=== PATIENT | female | born 1930 | race Caucasian/White ===

== ENCOUNTER 2017-05-17 10:30 | Emergency (ER) | payer MEDICARE ==
[~2017-05-17] VITALS: Ht 152.4 cm; Wt 64.0 kg
[~2017-05-17 10:30] MED LIST: ASPI81 PO; ATOR20TA42 PO; LEVO50TA51 PO
[2017-05-17 10:39] VITALS: BP 148/67; PULSE 89; RESP 16; TEMP 98.7; O2SAT 96
[2017-05-17] MEDS ORDERED: LIPI20TA PO (11:07)
[2017-05-17] MEDS ORDERED: LEVO75TA3 PO (11:07)
[2017-05-17] MEDS ORDERED: PLAV75TA29 PO (11:07)
[2017-05-17] MEDS ORDERED: MULTTAB67 PO (11:07)
--- NOTE | 2017-05-17 11:17 | PD ---
HPI Chief Complaint: Musculoskeletal Complaint Time Seen by Provider: 10:45 Travel History International Travel<30 days: No Contact w/Intl Traveler<30days: No Traveled to known affect area: No History of Present Illness HPI The patient was seen and examined in the presence of the nurse. She complains of left leg pain. Duration 3 weeks. Severity is moderate. There is no injury. It's a discrete distinct area on the medial side of the proximal right tibia. She is ambulatory. She says that sometimes the pain radiates from that spot up into her back. Denies neurologic complaint or fever. PFSH Past Medical History Hx Anticoagulant Therapy: Yes (BABY ASPRIN DAILY) Arthritis: Yes Asthma: No Blood Disorders: No Heart Rhythm Problems: No Cancer: Yes (LEFT BREAST) Cardiovascular Problems: Yes High Cholesterol: Yes Chemotherapy: No Chest Pain: No Congestive Heart Failure: No COPD: No Cerebrovascular Accident: No Diabetes: No Diminished Hearing: No Endocrine: Yes Gastrointestinal Disorders: Yes Glaucoma: No Genitourinary: No Headaches: No Hepatitis: No Hiatal Hernia: No Hypertension: No Immune Disorder: No Implanted Vascular Access Dvce: No Musculoskeletal: Yes Neurologic: No Psychiatric: No Reproductive: No Respiratory: Yes (SMOKER ) Migraines: No Myocardial Infarction: No Radiation Therapy: No Thyroid Disease: Yes Tetanus Vaccination: < 5 Years Influenza Vaccination: Yes ?: Not Menopausal: Yes Past Surgical History Abdominal Surgery: Yes (APPY) Appendectomy: Yes Section: Yes (X3) Eye Surgery: Yes Gynecologic Surgery: Yes () Mastectomy: Yes (LEFT 1996) Thoracic Surgery: Yes (LEFT MASTECTOMY) Tonsillectomy: Yes Other Surgery: Yes (LEFT MASECTOMY) Social History Alcohol Use: Yes (OCC) Tobacco Use: Yes (1/2 ppd) Substance Use: No Allergies-Medications (Allergen,Severity, Reaction): Coded Allergies: No Known Allergies (Verified , 05/17/17) Reported Meds & Prescriptions Reported Meds & Active Scripts Active Review of Systems General / Constitutional: No: Fever Eyes: No: Visual changes HENT: No: Headaches Cardiovascular: No: Chest Pain or Discomfort Respiratory: No: Shortness of Breath Gastrointestinal: No: Abdominal Pain Genitourinary: No: Dysuria Musculoskeletal: Positive: Pain Skin: No Rash Neurologic: No: Weakness Psychiatric: No: Depression Endocrine: No: Polydipsia Hematologic/Lymphatic: No: Easy Bruising Physical Exam Narrative GENERAL: Well-nourished, well-developed patient in no apparent distress. SKIN: Focused skin assessment reveals no rash and nodules. Skin is Warm and dry. HEAD: Atraumatic. Normocephalic. EYES: Pupils equal and round. No scleral icterus. No injection or drainage. ENT: No nasal bleeding or discharge. Mucous membranes pink and moist. NECK: Trachea midline. No JVD. CARDIOVASCULAR: Regular rate and rhythm. No murmur appreciated. RESPIRATORY: No accessory muscle use. Clear to auscultation. Breath sounds equal bilaterally. GASTROINTESTINAL: Abdomen soft, non-tender, nondistended. Hepatic and splenic margins not palpable. MUSCULOSKELETAL: No obvious deformities. No clubbing. No cyanosis. No edema. There is a very small distinct tender spot medial aspect of the proximal left lower leg. There is no erythema or warmth of the leg. No edema. No ascending lymphangitis. No findings of infection. NEUROLOGICAL: Awake and alert. No obvious cranial nerve deficits. Motor grossly within normal limits. Normal speech. PSYCHIATRIC: Appropriate mood and affect; insight and judgment normal. Data Data Last Documented VS Vital Signs Date Time Temp Pulse Resp B/P (MAP) Pulse Ox O2 Delivery O2 Flow Rate FiO2 05/17/17 10:39 98.7 89 16 148/67 (94) 96 Orders Orders Tibia/Fibula (Ap/Lat) (05/17/17 ) [facility] Medical Decision Making Medical Screen Exam Complete: Yes Emergency Medical Condition: Yes Medical Record Reviewed: Yes Differential Diagnosis Contusion, occult fracture, superficial thrombophlebitis Narrative Course I have reviewed the patient's electronic medical record. I reviewed her left tibia x-rays which are normal There is no clinical suspicion of objective findings to suggest a diagnosis of DVT. She looks to have a very small bruise there. Recommend primary care follow-up Diagnosis Primary Impression: Pain in left lower leg Additional Instructions: The patient was advised to follow up with their physician and return if they worsen. The patient was warned about potential sedation for the medications they will receive on prescription. Med/Other Pt SpecificInfo: Prescription(s) given Scripts Tramadol (Tramadol) 50 Mg Tab 50 MG PO Q6H Y for PAIN, #20 TAB 0 Refills Prov: Kwabena Mansfield MD 05/17/17 Disposition: 01 DISCHARGE HOME Condition: Stable Kwabena Mansfield MD May 17, 2017 11:17
--- NOTE | 2017-05-17 11:29 | RADRPT ---
EXAM DATE/TIME: 05/17/2017 11:18 [facility] COMPARISON: No previous studies available for comparison. INDICATIONS : No known injury. Pain started three weeks ago. Pain on proximal lateral side. MEDICAL HISTORY : Hypothyroidism. Carcinoma, breast. Chronic obstructive pulmonary disease. SURGICAL HISTORY : Mastectomy, left. Rotator cuff, right. Appendectomy. . Tonsils ENCOUNTER: Initial ACUITY: 3 weeks PAIN SCORE: 10/10 LOCATION: Left Tib/Fib FINDINGS: No definite fractures, or dislocations are identified. No definite lytic or sclerotic lesion is seen . There is no evidence for a radiopaque foreign body for technique. CONCLUSION: Unremarkable study. Robert Otero MD on May 17, 2017 at 11:27 Board Certified Radiologist. This report was verified electronically.
[2017-05-17] MEDS ORDERED: TRAM50TA PO (11:57)
== END 2017-05-17 12:09 | disposition home or self-care (01) ==
LOC: PHED 10:30
DX: M79.662 Pain in left lower leg (principal); E03.9 Hypothyroidism, unspecified; J44.9 Chronic obstructive pulmonary disease, unspecified; Z85.3 Personal history of malignant neoplasm of breast; Z90.12 Acquired absence of left breast and nipple; Z79.01 Long term (current) use of anticoagulants; E78.00 Pure hypercholesterolemia, unspecified; F17.210 Nicotine dependence, cigarettes, uncomplicated
CPT/HCPCS: 73590; 99283

== ENCOUNTER 2017-11-23 11:51 | Emergency (ER) | payer MEDICARE ==
[~2017-11-23 11:51] MED LIST changes: -ASPI81 PO; -ATOR20TA42 PO; -LEVO50TA51 PO; +LEVO75TA3 PO; +LIPI20TA PO; +MULTTAB67 PO; +PLAV75TA29 PO; +TRAM50TA PO
[2017-11-23 11:55] VITALS: BP 186/68; PULSE 119; RESP 20; TEMP 98.2; O2SAT 97
[2017-11-23] MEDS ORDERED: methylPREDNISolone SOD SUCC 125 MG/2 ML VIAL IV PUSH ONE (12:00)
[2017-11-23] MEDS ORDERED: SODIUM CHLOR 0.9% 1000 ML INJ 1,000 ML IV SCH (12:02)
--- NOTE | 2017-11-23 12:07 | PD ---
HPI Chief Complaint: Respiratory Symptoms Time Seen by Provider: 11:53 Travel History International Travel<30 days: No Contact w/Intl Traveler<30days: No History of Present Illness HPI This is an 87-year-old female with a history of COPD who presents for difficulty breathing. She has had 2 days of cough, nasal congestion and wheezing. No chest pain, diaphoresis. She is short of breath and generally weak. No rash, headache, neck pain or stiffness. No lower extremity edema, calf pain. No prior treatment. Symptoms are moderate in severity. Onset gradual. No associated abdominal pain, vomiting, diarrhea. Aggravated by exertion. PFSH Past Medical History Hx Anticoagulant Therapy: Yes (BABY ASPRIN DAILY) Arthritis: Yes Asthma: No Blood Disorders: No Heart Rhythm Problems: No Cancer: Yes (LEFT BREAST) Cardiovascular Problems: Yes High Cholesterol: Yes Chemotherapy: No Chest Pain: No Congestive Heart Failure: No COPD: Yes Cerebrovascular Accident: No Diabetes: No Diminished Hearing: No Endocrine: Yes Gastrointestinal Disorders: Yes Glaucoma: No Genitourinary: No Headaches: No Hepatitis: No Hiatal Hernia: No Hypertension: No Immune Disorder: No Implanted Vascular Access Dvce: No Musculoskeletal: Yes Neurologic: No Psychiatric: No Reproductive: No Respiratory: Yes (SMOKER ) Migraines: No Myocardial Infarction: No Radiation Therapy: No Thyroid Disease: Yes Menopausal: Yes Past Surgical History Abdominal Surgery: Yes (APPY) Appendectomy: Yes Section: Yes (X3) Eye Surgery: Yes Gynecologic Surgery: Yes () Mastectomy: Yes (LEFT 1996) Thoracic Surgery: Yes (LEFT MASTECTOMY) Tonsillectomy: Yes Other Surgery: Yes (LEFT MASECTOMY) Social History Alcohol Use: Yes (OCC) Tobacco Use: Yes (1/2 ppd) Substance Use: No Allergies-Medications (Allergen,Severity, Reaction): Coded Allergies: No Known Allergies (Verified , 05/17/17) Reported Meds & Prescriptions Reported Meds & Active Scripts Active Tessalon Perles (Benzonatate) 100 Mg Cap 100 Mg PO TID PRN Prednisone 20 Mg Tab 40 Mg PO DAILY Take 40 mg (2 tablets) daily for 5 days Azithromycin 250 Mg Tab 250 Mg PO DIRECTED Take 2 tabs (500 mg) on day 1 then 1 tab daily x 4 days. Reported Multiple Vitamin 1 Tab 1 Tab PO DAILY Levothyroxine (Levothyroxine Sodium) 75 Mcg Tab 75 Mcg PO DAILY Lipitor (Atorvastatin Calcium) 20 Mg Tab 20 Mg PO HS Plavix (Clopidogrel Bisulfate) 75 Mg Tab 75 Mg PO DAILY Review of Systems Except as stated in HPI: all other systems reviewed are Neg Physical Exam Narrative GENERAL: Alert, well nourished, well appearing patient resting on the bed in no acute distress. Vital Signs reviewed SKIN: Focused skin assessment warm/dry. HEAD: Atraumatic. Normocephalic. EYES: Pupils equal and round. No scleral icterus. No injection or drainage. ENT: No nasal bleeding or discharge. Mucous membranes pink and moist. NECK: Trachea midline. No JVD. Spontaneous, painless full range of motion with no meningismus CARDIOVASCULAR: Tachycardic with a regular rhythm. No murmur appreciated. Extremities warm and well perfused with bounding peripheral pulses RESPIRATORY: Mildly increased work of breathing. Diffuse expiratory wheezes breathing easily and speaking in full sentences GASTROINTESTINAL: Abdomen soft, non-tender, nondistended. Normal bowel sounds. No rigid, rebound, guarding MUSCULOSKELETAL: No obvious deformities. No clubbing. No cyanosis. No edema. Compartments are soft NEUROLOGICAL: Awake and alert. No obvious cranial nerve deficits. Motor grossly within normal limits. Normal speech. Sensation intact. Data Data Last Documented VS Vital Signs Date Time Temp Pulse Resp B/P (MAP) Pulse Ox O2 Delivery O2 Flow Rate FiO2 11/23/17 14:25 11/23/17 14:15 95 18 96 11/23/17 13:22 Room Air 11/23/17 11:55 98.2 Orders Orders Sepsis Workup Initiated (11/23/17 ) Electrocardiogram (11/23/17 11:58) Complete Blood Count With Diff (11/23/17 11:58) Comprehensive Metabolic Panel (11/23/17 11:58) Prothrombin Time / Inr (Pt) (11/23/17 11:58) Act Partial Throm Time (Ptt) (11/23/17 11:58) Lactic Acid Sepsis Protocol (11/23/17 11:58) Magnesium (Mg) (11/23/17 11:58) Ckmb (Isoenzyme) Profile (11/23/17 11:58) Troponin I (11/23/17 11:58) Urinalysis - C+S If Indicated (11/23/17 11:58) Influenzae A/B Antigen (11/23/17 11:58) Blood Culture (11/23/17 11:58) Chest, Pa & Lat (11/23/17 11:58) Ecg Monitoring (11/23/17 11:58) Iv Access Insert/Monitor (11/23/17 11:58) Oximetry (11/23/17 11:58) Oxygen Administration (11/23/17 11:58) Methylprednisolone So Succ Inj (Solumedr (11/23/17 12:00) Albuterol-Ipratropium Neb (Duoneb Neb) (11/23/17 12:00) Sodium Chlor 0.9% 1000 Ml Inj (Ns 1000 M (11/23/17 12:02) Ed Discharge Order (11/23/17 14:24) Labs Laboratory Tests Test 11/23/17 12:14 11/23/17 13:30 White Blood Count 6.3 TH/MM3 Red Blood Count 3.24 MIL/MM3 Hemoglobin 10.2 GM/DL Hematocrit 30.5 % Mean Corpuscular Volume 94.0 FL Mean Corpuscular Hemoglobin 31.4 PG Mean Corpuscular Hemoglobin Concent 33.4 % Red Cell Distribution Width 14.3 % Platelet Count 238 TH/MM3 Mean Platelet Volume 6.9 FL Neutrophils (%) (Auto) 70.5 % Lymphocytes (%) (Auto) 20.9 % Monocytes (%) (Auto) 4.5 % Eosinophils (%) (Auto) 2.3 % Basophils (%) (Auto) 1.8 % Neutrophils # (Auto) 4.5 TH/MM3 Lymphocytes # (Auto) 1.3 TH/MM3 Monocytes # (Auto) 0.3 TH/MM3 Eosinophils # (Auto) 0.1 TH/MM3 Basophils # (Auto) 0.1 TH/MM3 CBC Comment DIFF FINAL Differential Comment Hematology Comments Prothrombin Time 9.9 SEC Prothromb Time International Ratio 1.0 RATIO Activated Partial Thromboplast Time 24.2 SEC Blood Urea Nitrogen 18 MG/DL Creatinine 0.99 MG/DL Random Glucose 139 MG/DL Total Protein 7.6 GM/DL Albumin 3.4 GM/DL Calcium Level 9.5 MG/DL Magnesium Level 2.0 MG/DL Alkaline Phosphatase 106 U/L Aspartate Amino Transf (AST/SGOT) 28 U/L Alanine Aminotransferase (ALT/SGPT) 36 U/L Total Bilirubin 0.9 MG/DL Sodium Level 138 MEQ/L Potassium Level 4.0 MEQ/L Chloride Level 104 MEQ/L Carbon Dioxide Level 27.6 MEQ/L Anion Gap 6 MEQ/L Estimat Glomerular Filtration Rate 53 ML/MIN Lactic Acid Level 1.0 mmol/L Total Creatine Kinase 39 U/L Troponin I LESS THAN 0.02 NG/ML Urine Collection Type CATH Urine Color YELLOW Urine Turbidity CLEAR Urine pH 6.0 Urine Specific Unity 1.005 Urine Protein NEG mg/dL Urine Glucose (UA) NEG mg/dL Urine Ketones NEG mg/dL Urine Occult Blood NEG Urine Nitrite NEG Urine Bilirubin NEG Urine Urobilinogen 0.2 MG/DL Urine Leukocyte Esterase NEG Urine WBC 0-2 /hpf Urine Squamous Epithelial Cells 0-5 /hpf Microscopic Urinalysis Comment CULT NOT INDICATED Urine Collection Time 13:30 [facility] Medical Decision Making Medical Screen Exam Complete: Yes Emergency Medical Condition: Yes Medical Record Reviewed: Yes Interpretation(s) EKG shows sinus tachycardia with a rate of 112. No acute ST elevation Laboratory Tests Test 11/23/17 12:14 11/23/17 13:30 White Blood Count 6.3 TH/MM3 Red Blood Count 3.24 MIL/MM3 Hemoglobin 10.2 GM/DL Hematocrit 30.5 % Mean Corpuscular Volume 94.0 FL Mean Corpuscular Hemoglobin 31.4 PG Mean Corpuscular Hemoglobin Concent 33.4 % Red Cell Distribution Width 14.3 % Platelet Count 238 TH/MM3 Mean Platelet Volume 6.9 FL Neutrophils (%) (Auto) 70.5 % Lymphocytes (%) (Auto) 20.9 % Monocytes (%) (Auto) 4.5 % Eosinophils (%) (Auto) 2.3 % Basophils (%) (Auto) 1.8 % Neutrophils # (Auto) 4.5 TH/MM3 Lymphocytes # (Auto) 1.3 TH/MM3 Monocytes # (Auto) 0.3 TH/MM3 Eosinophils # (Auto) 0.1 TH/MM3 Basophils # (Auto) 0.1 TH/MM3 CBC Comment DIFF FINAL Differential Comment Hematology Comments Prothrombin Time 9.9 SEC Prothromb Time International Ratio 1.0 RATIO Activated Partial Thromboplast Time 24.2 SEC Blood Urea Nitrogen 18 MG/DL Creatinine 0.99 MG/DL Random Glucose 139 MG/DL Total Protein 7.6 GM/DL Albumin 3.4 GM/DL Calcium Level 9.5 MG/DL Magnesium Level 2.0 MG/DL Alkaline Phosphatase 106 U/L Aspartate Amino Transf (AST/SGOT) 28 U/L Alanine Aminotransferase (ALT/SGPT) 36 U/L Total Bilirubin 0.9 MG/DL Sodium Level 138 MEQ/L Potassium Level 4.0 MEQ/L Chloride Level 104 MEQ/L Carbon Dioxide Level 27.6 MEQ/L Anion Gap 6 MEQ/L Estimat Glomerular Filtration Rate 53 ML/MIN Lactic Acid Level 1.0 mmol/L Total Creatine Kinase 39 U/L Troponin I LESS THAN 0.02 NG/ML Urine Collection Type CATH Urine Color YELLOW Urine Turbidity CLEAR Urine pH 6.0 Urine Specific Unity 1.005 Urine Protein NEG mg/dL Urine Glucose (UA) NEG mg/dL Urine Ketones NEG mg/dL Urine Occult Blood NEG Urine Nitrite NEG Urine Bilirubin NEG Urine Urobilinogen 0.2 MG/DL Urine Leukocyte Esterase NEG Urine WBC 0-2 /hpf Urine Squamous Epithelial Cells 0-5 /hpf Microscopic Urinalysis Comment CULT NOT INDICATED Urine Collection Time 13:30 Last 24 hours Impressions Chest X-Ray 11/23/17 1158 Signed Impressions: Service Date/Time: Thursday, November 23, 2017 12:39 - CONCLUSION: No acute disease. Brown Rojas MD FACR Differential Diagnosis Acute bronchitis, pneumonia, influenza, COPD exacerbation, atypical angina Narrative Course The patient was seen immediately upon arrival to the room. She was placed on a head sawyer. IV access was established. Patient had diffuse expiratory wheezes. She was given duo nebs, Solu-Medrol and IV fluids with improvement in respiratory status and heart rate. Upon reexamination at 2:10 PM: Patient is sitting upright in bed, breathing easily and speaking in full sentences. She states that she feels much better. Her oxygen saturation on room air is 97%. Heart rate 89. Her lung sounds are now clear. She is able to ambulate without assistance. I reviewed the results of the workup with her. She is adamant that she would like to be discharged. Plan for discharge with supportive care, increased frequency of albuterol treatments at home, prednisone, azithromycin and close outpatient follow-up with primary physician. Patient was counseled regarding smoking cessation. Patient understands the importance of close outpatient follow-up. She understands she may require further testing and treatment as an outpatient. She understands strict return indications. She is comfortable with this plan and eager to go home. Diagnosis Primary Impression: COPD exacerbation Additional Impression: Acute bronchitis Qualified Codes: J20.9 - Acute bronchitis, unspecified Referrals: Primary Care Physician 3 days Patient Instructions: Acute Bronchitis (ED), COPD (Chronic Obstructive Pulmonary Disease) (GEN), General Instructions Additional Instructions: Take prednisone as directed starting tomorrow. Use albuterol nebulizer every 4 hours as needed for coughing and wheezing. Take azithromycin as directed. Follow-up with primary physician in 3 days for recheck. Call today to make an appointment. Return with worsening symptoms. Med/Other Pt SpecificInfo: Prescription(s) given Scripts Benzonatate (Tessalon Perles) 100 Mg Cap 100 MG PO TID Y for COUGH, #12 CAP 0 Refills Prov: Dinah Koenig MD 11/23/17 Prednisone (Prednisone) 20 Mg Tab 40 MG PO DAILY, #10 TAB 0 Refills Take 40 mg (2 tablets) daily for 5 days Prov: Dinah Koenig MD 11/23/17 Azithromycin (Azithromycin) 250 Mg Tab 250 MG PO DIRECTED for Infection, #6 TAB 0 Refills Take 2 tabs (500 mg) on day 1 then 1 tab daily x 4 days. Prov: Dinah Koenig MD 11/23/17 Disposition: 01 DISCHARGE HOME Condition: Stable Dinah Koenig MD Nov 23, 2017 12:07
[2017-11-23] MEDS: RESP: ALBUTEROL 2.5 MG/IPRATROPIUM 0.5 MG NEB (SCH) INH (12:15)
[2017-11-23 12:18] VITALS: O2SAT 97
[2017-11-23 12:30] LABS: CHLORIDE 104 MEQ/L (98-107); SODIUM (NA) 138 MEQ/L (136-145)
[2017-11-23 12:34] LABS: ALBUMIN 3.4 GM/DL (3.4-5.0); BICARBONATE 27.6 MEQ/L (21.0-32.0); BLOOD UREA NITROGEN 18 MG/DL (7-18); CALCIUM 9.5 MG/DL (8.5-10.1); GLUCOSE,RANDOM 139 MG/DL (74-106)
[2017-11-23 12:36] LABS: PROTHROMBIN TIME - PATIENT 9.9 SEC (9.8-11.6)
[2017-11-23 12:37] LABS: ALT (GPT) 36 U/L (10-53); AST (GOT) 28 U/L (15-37); CREATININE 0.99 MG/DL (0.50-1.00); GLOMERULAR FILTRATION RATE 53 ML/MIN (>89)
[2017-11-23 12:39] LABS: TOTAL BILIRUBIN ADULT 0.9 MG/DL (0.2-1.0); TOTAL PROTEIN 7.6 GM/DL (6.4-8.2)
[2017-11-23 12:40] LABS: ALKALINE PHOSPHATASE 106 U/L (45-117)
[2017-11-23 12:42] LABS: TROPONIN I LESS THAN 0.02 NG/ML (0.02-0.05)
--- NOTE | 2017-11-23 12:50 | RADRPT ---
EXAM DATE/TIME: 11/23/2017 12:39 [facility] COMPARISON: No previous studies available for comparison. INDICATIONS : Cough, congestion, wheezing, short of breath x 2 days. MEDICAL HISTORY : Hypercholesterolemia. Arthritis. Hypothyroidism. Carcinoma, breast. Chronic obstructive pulmonar y disease. SURGICAL HISTORY : Mastectomy, left. Rotator cuff, right. Appendectomy. . Tonsils. ENCOUNTER: Initial ACUITY: 2 days PAIN SCORE: 0/10 LOCATION: chest FINDINGS: PA and lateral views of the chest demonstrate the lungs to be symmetrically aerated without evidence of mass, infiltrate or effusion. The cardiomediastinal contours are unremarkable. Osseous structure s are intact. CONCLUSION: No acute disease. Brown Rojas MD FACR on November 23, 2017 at 12:49 Board Certified Radiologist. This report was verified electronically.
[2017-11-23 13:16] LABS: AUTOMATED NEUTROPHIL # 4.5 TH/MM3 (1.8-7.7); BASOPHIL # 0.1 TH/MM3 (0-0.2); BASOPHIL % 1.8 % (0.0-2.0); EOSINOPHIL # 0.1 TH/MM3 (0-0.4); EOSINOPHIL % 2.3 % (0.0-4.0); HEMATOCRIT 30.5 % (35.0-46.0); HEMOGLOBIN 10.2 GM/DL (11.6-15.3); LYMPH % 20.9 % (9.0-44.0); LYMPHOCYTE # 1.3 TH/MM3 (1.0-4.8); MEAN CORPUSCULAR HEMOGLOBIN 31.4 PG (27.0-34.0); MEAN CORPUSCULAR HGB CONC 33.4 % (32.0-36.0); MEAN PLATELET VOLUME 6.9 FL (7.0-11.0); MONO % 4.5 % (0.0-8.0); MONOCYTE # 0.3 TH/MM3 (0-0.9); NEUT % 70.5 % (16.0-70.0); PLATELET COUNT 238 TH/MM3 (150-450); RED BLOOD COUNT 3.24 MIL/MM3 (4.00-5.30); RED CELL DISTRIBUTION WIDTH 14.3 % (11.6-17.2); WHITE BLOOD COUNT 6.3 TH/MM3 (4.0-11.0)
[2017-11-23 13:22] VITALS: BP 160/76; PULSE 91; RESP 18; O2SAT 94
[2017-11-23 13:44] LABS: BILIRUBIN, URINE NEG (NEG); BLOOD, URINE NEG (NEG); GLUCOSE,URINE NEG (NEG); KETONE, URINE NEG (NEG); NITRITE,URINE NEG (NEG); URINE COLOR YELLOW (YELLW/STRAW); URINE LEUKOCYTE ESTERASE NEG (NEG)
[2017-11-23 13:49] LABS: SQUAMOUS EPITHELIAL CELL URINE 0-5 /hpf (0-5); WBC, URINE 0-2 /hpf (0-5)
[2017-11-23 14:15] VITALS: PULSE 95; RESP 18; O2SAT 96
[2017-11-23] MEDS ORDERED: BENZ100 PO (14:24)
[2017-11-23] MEDS ORDERED: AZIT250T3 PO (14:24)
[2017-11-23] MEDS ORDERED: PRED20 PO (14:24)
--- NOTE | 2017-11-24 10:11 | EKG ---
Date Performed: 11/23/2017 Time Performed: 12:00:35 PTAGE: 87 years EKG: SINUS TACHYCARDIA NONSPECIFIC ST & T-WAVE ABNORMALITY ABNORMAL RHYTHM ECG PREVIOUS TRACING : 05/24/2016 13.13 DOCTOR: Santana Goodson Interpretating Date/Time 11/24/2017 10:08:50
== END 2017-11-23 14:59 | disposition home or self-care (01) ==
LOC: PHED 11:51
DX: J44.1 Chronic obstructive pulmonary disease with (acute) exacerbation (principal); J44.0 Chronic obstructive pulmonary disease with (acute) lower respiratory infection; J20.9 Acute bronchitis, unspecified; F17.200 Nicotine dependence, unspecified, uncomplicated; E07.9 Disorder of thyroid, unspecified; E78.00 Pure hypercholesterolemia, unspecified; Z79.899 Other long term (current) drug therapy
CPT/HCPCS: 71046; 80053; 81001; 82550; 83605; 83735; 84484; 85025; 85610; 85730; 87040; 87804; 93005; 94640; 94664; 96361; 96374; 99285; J2930; J7030

== ENCOUNTER 2018-01-18 09:28 | Emergency (ER) | payer MEDICARE ==
[~2018-01-18] VITALS: Ht 152.4 cm; Wt 60.0 kg
[~2018-01-18 09:28] MED LIST changes: +AZIT250T3 PO; +BENZ100 PO; +PRED20 PO; -TRAM50TA PO
[2018-01-18 09:36] VITALS: BP 141/77; PULSE 97; RESP 22; TEMP 98.4; O2SAT 96
--- NOTE | 2018-01-18 09:57 | PD ---
HPI Chief Complaint: Fall Time Seen by Provider: 09:45 Travel History International Travel<30 days: No Contact w/Intl Traveler<30days: No Traveled to known affect area: No History of Present Illness HPI 87-year-old female presents to the emergency department for evaluation after a trip and fall on Sunday, 4 days ago. She states she had IV going on her plantar when she tripped and fell. She did hit her head against the concrete. She complains of lower back pain. She denies any loss of conscious. She denies any neck pain or upper back pain. No chest pain or abdominal pain. No nausea, vomiting, diarrhea. She reports the pain 10/10 to the lower back without radiation, worse with movement relieved with sitting still. She has tried Tylenol and ice at home without improvement. She denies being on anticoagulants. Past medical history is significant for hypothyroid and hyperlipidemia. She denies any other symptom or complaint. Moderate severity. PFSH Past Medical History Hx Anticoagulant Therapy: No Arthritis: Yes Asthma: No Blood Disorders: No Heart Rhythm Problems: No Cancer: Yes (LEFT BREAST) Cardiovascular Problems: No High Cholesterol: Yes Chemotherapy: No Chest Pain: No Congestive Heart Failure: No COPD: Yes Cerebrovascular Accident: No Diabetes: No Diminished Hearing: No Endocrine: Yes Gastrointestinal Disorders: Yes Glaucoma: No Genitourinary: No Headaches: No Hepatitis: No Hiatal Hernia: No Hypertension: No Immune Disorder: No Implanted Vascular Access Dvce: No Musculoskeletal: Yes Neurologic: No Psychiatric: No Reproductive: No Respiratory: No Migraines: No Myocardial Infarction: No Radiation Therapy: No Thyroid Disease: Yes ?: Not Menopausal: Yes Past Surgical History Abdominal Surgery: Yes (APPY) Appendectomy: Yes Section: Yes (X3) Eye Surgery: Yes Gynecologic Surgery: Yes () Hysterectomy: No Mastectomy: Yes (LEFT 1996) Thoracic Surgery: Yes (LEFT MASTECTOMY) Tonsillectomy: Yes Other Surgery: Yes (LEFT MASECTOMY) Social History Alcohol Use: Yes (OCC) Tobacco Use: Yes (1/2 ppd) Substance Use: No Allergies-Medications (Allergen,Severity, Reaction): Coded Allergies: No Known Allergies (Verified Adverse Reaction, Unknown, 01/18/18) Reported Meds & Prescriptions Reported Meds & Active Scripts Active Reported Multiple Vitamin 1 Tab 1 Tab PO DAILY Levothyroxine (Levothyroxine Sodium) 75 Mcg Tab 75 Mcg PO DAILY Lipitor (Atorvastatin Calcium) 20 Mg Tab 20 Mg PO HS Plavix (Clopidogrel Bisulfate) 75 Mg Tab 75 Mg PO DAILY Review of Systems Except as stated in HPI: all other systems reviewed are Neg Physical Exam Narrative GENERAL: Well-nourished, well-developed elderly female patient, afebrile. SKIN: Focused skin assessment warm/dry. No lacerations or abrasions. HEAD: Normocephalic. Atraumatic. EYES: No scleral icterus. No injection or drainage. NECK: Supple, trachea midline. No JVD or lymphadenopathy. CARDIOVASCULAR: Regular rate and rhythm without murmurs, gallops, or rubs. Bilateral radial and pedal pulses are 2+. RESPIRATORY: Breath sounds equal bilaterally. No accessory muscle use. Lung sounds are clear to auscultation peer GASTROINTESTINAL: Abdomen soft, non-tender, nondistended. MUSCULOSKELETAL: No cyanosis, or edema. BACK: No obvious deformity. No CVA tenderness. Patient has tenderness over sacrum/coccyx. No other bony point tenderness. Data Data Last Documented VS Vital Signs Date Time Temp Pulse Resp B/P (MAP) Pulse Ox O2 Delivery O2 Flow Rate FiO2 01/18/18 10:07 91 20 126/74 (91) 97 Room Air 01/18/18 09:[address] Brain W/O Iv Contrast(Rout) (01/18/18 ) Ct Cerv Spine W/O Contrast (01/18/18 ) Spine, Lumbar - Ltd (Ap & Lat) (01/18/18 ) Sacrum And Coccyx (01/18/18 ) Pelvis, Ap Only (Routine) (01/18/18 ) Acetamin-Hydrocod 325-5 Mg (Ravenna 5-325 (01/18/18 10:00) MDM Medical Decision Making Medical Screen Exam Complete: Yes Emergency Medical Condition: Yes Medical Record Reviewed: Yes Interpretation(s) Last Impressions Sacrum and Coccyx X-Ray 01/18/18 0000 Signed Impressions: Service Date/Time: Thursday, January 18, 2018 10:05 - CONCLUSION: Unremarkable examination of the sacrum and coccyx. Santana Joy MD Pelvis X-Ray 01/18/18 0000 Signed Impressions: Service Date/Time: Thursday, January 18, 2018 10:05 - CONCLUSION: Unremarkable examination of the pelvis. Santana Joy MD Lumbar Spine X-Ray 01/18/18 0000 Signed Impressions: Service Date/Time: Thursday, January 18, 2018 10:05 - CONCLUSION: Unremarkable limited examination of the lumbar spine. Mild disc space narrowing at L2-3, L3-4 and L4-5. Santana Joy MD Head CT 01/18/18 0000 Signed Impressions: Service Date/Time: Thursday, January 18, 2018 10:16 - CONCLUSION: No acute disease. 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 Santana Joy MD Differential Diagnosis Fracture versus contusion versus closed head injury versus intracranial abnormality Narrative Course 87-year-old female presents to the emergency department for evaluation after a trip and fall on Sunday. CT of the brain and cervical spine are ordered and pending. X-ray of the lumbar spine, sacrum/coccyx, pelvis are ordered and pending. Patient is given Ravenna 5/[address] of the brain shows no acute disease. CT of the cervical spine is normal. X- ray lumbar spine is unremarkable. X-ray of the sacrum/coccyx is unremarkable. X-ray of the pelvis is unremarkable. I discussed results with the patient. Patient has been ambulatory at home. She will be discharged with a short-term prescription for Ravenna. She is using heating pad and follow-up with her primary care physician. The patient was discharged in stable condition with instructions, including return instructions and follow up instructions. Diagnosis Primary Impression: Contusion of lower back Qualified Codes: S30.0XXA - Contusion of lower back and pelvis, initial encounter Referrals: Primary Care Physician call for appointment Patient Instructions: Contusion in Adults (ED), General Instructions, Narcotic given in the ED Additional Instructions: Take Ravenna as directed as needed for pain. Caution this can make her drowsy so do not drive after taking. Fall precautions. Heating pad on low for 20 minutes 4-5 times daily. Follow-up with a primary care physician. Return to the emergency department for any acute worsening of symptoms. Med/Other Pt SpecificInfo: Prescription(s) given Scripts Hydrocodone-Acetaminophen (Ravenna) 5 Mg-325 Mg Tab 0.5-1 TAB PO Q6H Y for PAIN, #6 TAB 0 Refills Prov: Keri Pinedo 01/18/18 Disposition: 01 DISCHARGE HOME Condition: Stable Keri Pinedo Jan 18, 2018 09:57
[2018-01-18] MEDS ORDERED: ACETAMINOPHEN/HYDROcodone 325 MG/5 MG TAB PO ONE (10:00)
[2018-01-18 10:07] VITALS: BP 126/74; PULSE 91; RESP 20; O2SAT 97
--- NOTE | 2018-01-18 10:33 | RADRPT ---
EXAM DATE/TIME: 01/18/2018 10:05 [facility] COMPARISON: No previous studies available for comparison. INDICATIONS : Low back pain post fall 5 days ago. MEDICAL HISTORY : None. SURGICAL HISTORY : None. ENCOUNTER: Initial ACUITY: 4 - 6 days PAIN SCORE: 9/10 LOCATION: lumbar spine FINDINGS: Two view examination was performed. There are five non-rib bearing vertebral bodies. The vertebral bodies are in normal alignment without evidence of subluxation or scoliosis. The disc spaces are javier ntained. The pedicles are intact. Bony mineralization is normal. No fracture is identified. CONCLUSION: Unremarkable limited examination of the lumbar spine. Mild disc space narrowing at L2-3, L3-4 and L4 -5. Santana Joy MD on January 18, 2018 at 10:30 Board Certified Radiologist. This report was verified electronically.
--- NOTE | 2018-01-18 10:34 | RADRPT ---
EXAM DATE/TIME: 01/18/2018 10:05 [facility] COMPARISON: No previous studies available for comparison. INDICATIONS : Pelvic pain post fall 5 days ago. MEDICAL HISTORY : None. SURGICAL HISTORY : None. ENCOUNTER: Initial ACUITY: 4 - 6 days PAIN SCORE: 10/10 LOCATION: pelvis FINDINGS: A single frontal view of the pelvis demonstrates no evidence of fracture. The bony pelvic ring is in tact. Bony mineralization is normal. The soft tissues are intact. CONCLUSION: Unremarkable examination of the pelvis. Santana Joy MD on January 18, 2018 at 10:31 Board Certified Radiologist. This report was verified electronically.
--- NOTE | 2018-01-18 10:34 | RADRPT ---
EXAM DATE/TIME: 01/18/2018 10:05 [facility] COMPARISON: No previous studies available for comparison. INDICATIONS : Sacrum & coccyx pain post fall 5 days ago. MEDICAL HISTORY : None. SURGICAL HISTORY : None. ENCOUNTER: Initial ACUITY: 4 - 6 days PAIN SCORE: 9/10 LOCATION: sacral/ coxxyx FINDINGS: Two-view examination of the sacrum and coccyx demonstrates no evidence of fracture or malalignment. The sacral ala and foramina appear symmetric and intact. The coccyx appears unremarkable. The preve rtebral soft tissues are within normal limits. CONCLUSION: Unremarkable examination of the sacrum and coccyx. Santana Joy MD on January 18, 2018 at 10:31 Board Certified Radiologist. This report was verified electronically.
--- NOTE | 2018-01-18 10:36 | RADRPT ---
EXAM DATE/TIME: 01/18/2018 10:16 [facility] COMPARISON: CT BRAIN W/O CONTRAST, May 24, 2016, 14:04. INDICATIONS : Trauma. Tripped and fell 4 days ago. Hit back of head on concrete. RADIATION DOSE: 61.46 CTDIvol (mGy) MEDICAL HISTORY : Chronic obstructive pulmonary disease. Carcinoma, breast. SURGICAL HISTORY : Appendectomy. Mastectomy, left. section. ENCOUNTER: Initial ACUITY: 4 - 6 days PAIN SCALE: 2/10 LOCATION: cranial TECHNIQUE: Multiple contiguous axial images were obtained of the head. Using automated exposure control and adj ustment of the mA and/or kV according to patient size, radiation dose was kept as low as reasonably a chievable to obtain optimal diagnostic quality images. DICOM format image data is available electro nically for review and comparison. FINDINGS: There is marked central and cortical atrophy with dilatation of ventricular and sulcal spaces. There is no parenchymal hemorrhage, acute infarction or mass lesion identified. There are no extra-axial fluid collections appreciated. The posterior fossa is unremarkable with midline fourth ventricle. T he portion of the orbits and paranasal sinuses visualized are unremarkable. CONCLUSION: No acute disease. Santana Joy MD on January 18, 2018 at 10:32 Board Certified Radiologist. This report was verified electronically.
--- NOTE | 2018-01-18 10:38 | RADRPT ---
EXAM DATE/TIME: 01/18/2018 10:16 [facility] COMPARISON: No previous studies available for comparison. INDICATIONS : Trauma. Tripped and fell 4 days ago. Hit back of head on concrete. RADIATION DOSE: 25.58 CTDIvol (mGy) MEDICAL HISTORY : Chronic obstructive pulmonary disease. Carcinoma, breast. SURGICAL HISTORY : Mastectomy, left. Appendectomy. section. ENCOUNTER: Initial ACUITY: 4 - 6 days PAIN SCALE: 0/10 LOCATION: neck TECHNIQUE: Volumetric scanning of the cervical spine was performed. Multiplanar reconstructions in the sagittal, coronal and oblique axial planes were performed. Using automated exposure control and adjustment o f the mA and/or kV according to patient size, radiation dose was kept as low as reasonably achievable to obtain optimal diagnostic quality images. DICOM format image data is available electronically f or review and comparison. FINDINGS: VERTEBRAE: Normal vertebral body height. Mild disc space narrowing at both C5-6 and C6-7 ALIGNMENT: No evidence of subluxation. C2-C3: The bony spinal canal is normal in size. No evidence of disc bulge or herniation. The neural forami na are bilaterally patent. C3-C4: The bony spinal canal is normal in size. No evidence of disc bulge or herniation. The neural forami na are bilaterally patent. C4-C5: The bony spinal canal is normal in size. No evidence of disc bulge or herniation. The neural forami na are bilaterally patent. C5-C6: The bony spinal canal is normal in size. No evidence of disc bulge or herniation. The neural forami na are bilaterally patent. C6-C7: The bony spinal canal is normal in size. No evidence of disc bulge or herniation. The neural forami na are bilaterally patent. C7-T1: The bony spinal canal is normal in size. No evidence of disc bulge or herniation. The neural forami na are bilaterally patent. 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 Santana Joy MD on January 18, 2018 at 10:34 Board Certified Radiologist. This report was verified electronically.
[2018-01-18] MEDS ORDERED: NORC5TAB PO (10:58)
[2018-01-18 11:15] VITALS: BP 127/56; PULSE 76; RESP 16; O2SAT 95
== END 2018-01-18 11:20 | disposition home or self-care (01) ==
LOC: PHED 09:28
DX: S30.0XXA Contusion of lower back and pelvis, initial encounter (principal); S09.90XA Unspecified injury of head, initial encounter; W01.0XXA Fall on same level from slipping, tripping and stumbling without subsequent striking against object, initial encounter; E03.9 Hypothyroidism, unspecified; E78.5 Hyperlipidemia, unspecified; M19.90 Unspecified osteoarthritis, unspecified site; J44.9 Chronic obstructive pulmonary disease, unspecified; F17.200 Nicotine dependence, unspecified, uncomplicated; Z85.3 Personal history of malignant neoplasm of breast
CPT/HCPCS: 70450; 72100; 72125; 72170; 72220; 99284